=== PATIENT | male | born 1990 | race Two or more races ===

== ENCOUNTER 2023-04-07 19:59 | Emergency (ER) | payer OTHER ==
[2023-04-07 20:13] VITALS: RESP 18; BMI 29.9
[2023-04-07] MEDS ORDERED: ACETAMINOPHEN 500 MG TABLET (FP) PO ONE (20:53)
[2023-04-07] MEDS ORDERED: ACETAMINOPHEN 500 MG TABLET (FP) ONE (20:54)
[2023-04-07] MEDS ORDERED: AMOX TR/POT CLAV 875MG/125MG TABLETS (FP) PO ONE (21:20)
[2023-04-07] MEDS ORDERED: AMOXICILLIN 500 MG CAPSULE (FP) PO ONE (21:21)
[2023-04-07] MEDS ORDERED: AMOXICILLIN 250 MG CAPSULE ONE (21:23)
[2023-04-07 21:53] VITALS: BP 103/63; PULSE 106; TEMP 100.8
== END 2023-04-07 22:12 | disposition home or self-care (01) ==
LOC: JERFT 19:59
DX: R51.9 Headache, unspecified (principal); J02.9 Acute pharyngitis, unspecified; R50.9 Fever, unspecified; B34.9 Viral infection, unspecified; Z20.822 Contact with and (suspected) exposure to COVID-19
CPT/HCPCS: 0241U-QW; 87070; 87077; 99283-25

== ENCOUNTER 2024-07-29 15:17 | Emergency (ER) | payer OTHER ==
[2024-07-29 15:32] VITALS: BP 125/88; PULSE 93; RESP 18; TEMP 99; BMI 29.9
[2024-07-29] MEDS ORDERED: ACETAMINOPHEN 500 MG TABLET (FP) ONE (16:31)
[2024-07-29] MEDS: ACETAMINOPHEN 500 MG TABLET (FP) PO ONE (16:31)
[2024-07-29] MEDS ORDERED: PENICILLIN G BENZATHINE 1,200,000 UNIT/2 ML PFS IM ONE (17:21)
[2024-07-29] MEDS: PENICILLIN G BENZATHINE 1,200,000 UNIT/2 ML PFS IM ONE (17:23)
== END 2024-07-29 17:26 | disposition home or self-care (01) ==
LOC: JERFT 15:17 → JER 15:17 → JERFT 17:26
DX: J02.0 Streptococcal pharyngitis (principal); R50.9 Fever, unspecified; R51.9 Headache, unspecified
CPT/HCPCS: 87651; 99284-25

== ENCOUNTER 2025-03-05 19:51 | Emergency (ER) | payer OTHER ==
[2025-03-05 20:00] VITALS: RESP 18; BMI 30.7
[2025-03-05] MEDS ORDERED: ACETAMINOPHEN 500 MG TABLET (FP) ONE (20:08)
[2025-03-05] MEDS ORDERED: IBUPROFEN 600 MG TABLET (FP) PO ONE (20:08)
[2025-03-05] MEDS: ACETAMINOPHEN 325 MG TABLET (FP) PO ONE (20:09)
[2025-03-05] MEDS: IBUPROFEN 600 MG TABLET (FP) PO ONE (20:09)
[2025-03-05] MEDS ORDERED: DOXYCYCLINE HYCLATE 100 MG CAPSULE PO ONE (21:45)
[2025-03-05 21:46] VITALS: BP 93/52; PULSE 111; TEMP 101
[2025-03-05] MEDS ORDERED: AZITHROMYCIN 500 MG TABLET ONE (21:49)
[2025-03-05] MEDS ORDERED: AMOXICILLIN 250 MG CAPSULE ONE (21:49)
[2025-03-05] MEDS: AMOXICILLIN 500 MG CAPSULE (FP) PO ONE (21:51)
[2025-03-05] MEDS: AZITHROMYCIN 250 MG TABLET PO ONE (21:51)
== END 2025-03-05 21:56 | disposition home or self-care (01) ==
LOC: JER 19:51
DX: J18.9 Pneumonia, unspecified organism (principal); R09.81 Nasal congestion; R05.9 Cough, unspecified; R09.82 Postnasal drip; R50.9 Fever, unspecified
CPT/HCPCS: 71046-TC-FY; 99283-25